=== PATIENT | male | born 1995 | race Caucasian/White ===

== ENCOUNTER 2018-04-29 19:21 | Emergency (ER) | payer OTHER ==
[~2018-04-29] VITALS: Ht 167.6 cm; Wt 86.2 kg
[2018-04-29] MEDS ORDERED: ZYRTEC10 MG PO (19:31)
[2018-04-29] MEDS ORDERED: SINGULAIR 10 MG10 M1 PO (19:31)
[2018-04-29] MEDS ORDERED: ACCUNEB SO1.25 MG/1 INH (19:32)
[2018-04-29] MEDS ORDERED: ADVAIR HFA 230M12 GM INH (19:32)
[2018-04-29] MEDS ORDERED: TRIAMCINOLONE A15 G1 TP (19:48)
[2018-04-29] MEDS ORDERED: MEDROLDOSEPACK PO (19:48)
[2018-04-29 20:10] VITALS: BP 132/80
== END 2018-04-29 20:11 | disposition home or self-care (01) ==
LOC: M.ERS 19:21
DX: L25.9 Unspecified contact dermatitis, unspecified cause (principal); J45.909 Unspecified asthma, uncomplicated